=== PATIENT | female | born 1995 | race Caucasian/White ===

== ENCOUNTER 2025-01-14 07:59 | Emergency (ER) | payer OTHER, SELFPAY ==
[2025-01-14 08:10] VITALS: BP 133/95
[2025-01-14 08:42] LABS: % Basophils 0.6 % (0-2); % Eosinophils 3.9 % (0-6); % Immature Granulocytes 0.3 % (0-0.5); % Lymphocytes 25.1 % (20.5-51.1); % Monocytes 5.4 % (1.7-9.3); % Neutrophils 64.7 % (42.2-75.2); Absolute Eosinophils 0.3 10^3/uL (0-0.7); Absolute Lymphocytes 1.8 10^3/uL (1.2-3.4); Absolute Monocytes 0.4 10^3/uL (0.1-0.6); Absolute Neutrophils 4.7 10^3/uL (1.4-6.5); Hematocrit 43.1 % (37.0-47.0); Hemoglobin 14.2 g/dL (12.0-16.0); Mean Corp Hgb Conc. 32.9 g/dL (33.0-37.0); Mean Corpuscular Volume 81.9 fL (81.0-99.0); Nucleated Red Blood Cells % 0 %; Platelet Count 262 10^3/uL (130-400); Red Blood Cell Count 5.26 10^6/uL (4.20-5.40); Red Cell Dist. Width 13.8 % (11.5-14.5); White Blood Cell Count 7.3 10^3/uL (4.8-10.8)
[2025-01-14 08:49] LABS: HCG, Serum Qualitative Screen Negative
[2025-01-14 08:52] LABS: ALT (SGPT) 19 U/L (0-35); AST (SGOT) 21 U/L (14-36); Albumin 5.2 g/dl (3.5-5.0); Alkaline Phosphatase 93 U/L (38-126); Blood Urea Nitrogen 16 mg/dl (7-17); Carbon Dioxide 27 mmol/L (22-30); Chloride 101 mmol/L (98-107); Glucose 110 mg/dl (70-99); Potassium 4.5 mmol/L (3.5-5.1); Sodium 139 mmol/L (135-145); Total Bilirubin 1.5 mg/dl (0.2-1.3); Total Protein 8.7 g/dl (6.3-8.2); eGFR > 60.00
[2025-01-14 09:20] LABS: TSH 3.43 uIU/ml (0.47-4.68)
--- NOTE | 2025-01-14 10:58 | ED.GENMED ---
History of Present Illness
<Yasemin Wilkins PA-C - Last Filed: 01/14/25 17:09>
General
Chief Complaint: Numbness
Source: patient
Exam Limitations: none
Time Seen by Provider: 01/14/25 10:43
History of Present Illness
History of Present Illness:
29yoF with no significant past medical history presenting for evaluation of paresthesias. She started with right eye visual disturbance on 01/04/25 She states she could only see 50% of her vision and could not see the top portion of her visual field.
She was seen by an eye doctor and was told her exam was normal and she possibly had a migraine. Those visual symptoms resolved but she continues to have blurry vision in the R eye. One week ago, she developed paresthesias to her bilateral lower
extremities. She felt pins and needles just above her knee down to her feet. She started to take a magnesium supplement and symptoms seemed to improve for a few days. She woke up today feeling numb in her inner thigh region. She also reports
intermittent paresthesias in her upper abdomen. No involvement of upper extremities. She has been feeling fatigued over the past few days and has been urinating frequently.
Phy Exam
<Yasemin Wilkins PA-C - Last Filed: 01/14/25 17:09>
General Physical Exam
General Presentation: well appearing and no apparent distress
General age: appears stated age
General Skin: warm and dry
General Habitus: normal
General Mental: alert
Eye Exam
Eye Exam: PERRL, EOMI and visual wright normal
Cardiovascular Exam
Cardiovascular Exam: normal peripheral pulses (2+ radial and DP pulses bilaterally)
Pulmonary Exam
Pulmonary Exam: no respiratory distress
Neurological Exam
Neurological Exam: alert, CN II-XII intact, no motor deficits, normal reflexs, speech normal and other (CN 2-12 intact. 5/5 strength in all extremities and negative drift x4. She reports decreased sensation to the inner thighs bilaterally. Normal
finger to nose and heel to jo bilaterally. 2+ patellar reflexes bilaterally. Patient ambulating with a steady gait. )
[place] Coma Scale
Eye Opening: Spontaneous
Verbal Response: Oriented
Motor Response: Obeys Commands
GCS Total Score: 15
Skin Exam
Skin Exam: normal color and warm/dry
Psychiatric Exam
Psychiatric Exam: normal mood/affect
<Demetris Hurley MD - Last Filed: 01/14/25 12:16>
[place] Coma Scale
GCS Total Score: 15
Course
<Yasemin Wilkins PA-C - Last Filed: 01/14/25 17:09>
Orders/Labs/Results
Orders:
Orders
01/14/25 08:18
Test Result ONCE
01/14/25 08:25
Complete Blood Count/With Diff Urgent
Comprehensive Metabolic Panel Urgent
Folate Urgent
Comment: ADD FROM OTHER ORDER
HCG, Serum Qualitative Screen Urgent
Magnesium Urgent
TSH Urgent
Vitamin B12 Urgent
Comment: ADD FROM OTHER ORDER
01/14/25 08:53
CT Head W/o Iv Contrast Urgent
Comment:
Reason For Exam: R eye vision loss/blurriness, B/L LE numb/tingling
01/14/25 10:57
Add On- LAB Urgent
Tests Added?: magnesium
01/14/25 11:10
NEUROLOGY CONSULT Urgent
Consulting Provider: Howard Baires
Was physician already notified: Yes
01/14/25 11:32
Urinalysis Reflex To Culture Urgent
Date Specimen was Collected: 01/14/25
Time Specimen was Collected: 10:59
Urine Microscopic Reflex Cult Urgent
Urine Culture Urgent
DUSTIN Source: U
Specimen Description:
Date Specimen was Collected: 01/14/25
Time Specimen was Collected: 10:59
01/14/25 13:01
CT Head & Neck Angio W/wo IV Urgent
Comment:
Reason For Exam: amaurosis fugax r/o dissection
01/14/25 13:43
HAMZAH, IgG Reflex to HEp-2 [S] Routine
ANCA - MPO/PR3 Ab Profile [S] Routine
Heavy Metals Panel 3, Blood [S] Routine
Protein Electrophoresis Reflex [S] Routine
Sjogrens Ab (SSA 52, 60/SSB) [S] Routine
Abnormal Lab Results
01/14/25 01/14/25
08: 11:32
MCHC 32.9 L g/dL
(33.0-37.0)
Glucose 110 H mg/dl
(70-99)
Total Bilirubin 1.5 H mg/dl
(0.2-1.3)
Total Protein 8.7 H g/dl
(6.3-8.2)
Albumin 5.2 H g/dl
(3.5-5.0)
Leukocyte Esterase Rfl 3+ A
(Negative)
Urine WBC (Reflex) 50-60 A /HPF
(0-5)
Urine Bacteria (Reflex) Many A
(Negative)
01/14/25 08:25
01/14/25 08:25
Vital Signs
Initial and Last Documented VS:
Initial Vital Signs
Temp Pulse Resp BP Pulse Ox
98.1 F 81 18 133/95 100
01/14/25 08:10 01/14/25 08:10 01/14/25 08:10 01/14/25 08:10 01/14/25 08:10
Last Documented Vital Signs
Temp Pulse Resp BP Pulse Ox
98.1 F 66 18 130/84 100
01/14/25 08:10 01/14/25 15:47 01/14/25 15:47 01/14/25 15:26 01/14/25 15:27
<Demetris Hurley MD - Last Filed: 01/14/25 12:16>
Orders/Labs/Results
Orders:
Orders
01/14/25 08:18
Test Result ONCE
01/14/25 08:25
Complete Blood Count/With Diff Urgent
Comprehensive Metabolic Panel Urgent
Folate Urgent
Comment: ADD FROM OTHER ORDER
HCG, Serum Qualitative Screen Urgent
Magnesium Urgent
TSH Urgent
Vitamin B12 Urgent
Comment: ADD FROM OTHER ORDER
01/14/25 08:53
CT Head W/o Iv Contrast Urgent
Comment:
Reason For Exam: R eye vision loss/blurriness, B/L LE numb/tingling
01/14/25 10:57
Add On- LAB Urgent
Tests Added?: magnesium
01/14/25 11:10
NEUROLOGY CONSULT Urgent
Consulting Provider: Howard Baires
Was physician already notified: Yes
01/14/25 11:32
Urinalysis Reflex To Culture Urgent
Date Specimen was Collected: 01/14/25
Time Specimen was Collected: 10:59
Urine Microscopic Reflex Cult Urgent
Urine Culture Urgent
DUSTIN Source: U
Specimen Description:
Date Specimen was Collected: 01/14/25
Time Specimen was Collected: 10:59
01/14/25 13:01
CT Head & Neck Angio W/wo IV Urgent
Comment:
Reason For Exam: amaurosis fugax r/o dissection
01/14/25 13:43
HAMZAH, IgG Reflex to HEp-2 [S] Routine
ANCA - MPO/PR3 Ab Profile [S] Routine
Heavy Metals Panel 3, Blood [S] Routine
Protein Electrophoresis Reflex [S] Routine
Sjogrens Ab (SSA 52, 60/SSB) [S] Routine
Abnormal Lab Results
01/14/25 01/14/25
08:25 11:32
MCHC 32.9 L g/dL
(33.0-37.0)
Glucose 110 H mg/dl
(70-99)
Total Bilirubin 1.5 H mg/dl
(0.2-1.3)
Total Protein 8.7 H g/dl
(6.3-8.2)
Albumin 5.2 H g/dl
(3.5-5.0)
Leukocyte Esterase Rfl 3+ A
(Negative)
Urine WBC (Reflex) 50-60 A /HPF
(0-5)
Urine Bacteria (Reflex) Many A
(Negative)
01/14/25 08:25
01/14/25 08:25
Vital Signs
Initial and Last Documented VS:
Initial Vital Signs
Temp Pulse Resp BP Pulse Ox
98.1 F 81 18 133/95 100
01/14/25 08:10 01/14/25 08:10 01/14/25 08:10 01/14/25 08:10 01/14/25 08:10
Last Documented Vital Signs
Temp Pulse Resp BP Pulse Ox
98.1 F 66 18 130/84 100
01/14/25 08:10 01/14/25 15:47 01/14/25 15:47 01/14/25 15:26 01/14/25 15:27
Estherlt;Yasemin Wilkins PA-C - Last Filed: 01/14/25 17:09>
MDM/Problems Addressed
Differential Diagnosis Includes:
29yoF here with lower extremity paresthesias. Started with R eye vision loss on 01/04/25. Saw an eye doctor and had a normal exam. Visual loss has resolved but she continues to have blurriness. C/o pins and needles in both legs x 1 week. New numbness
to inner thighs this morning so came to the ED. VSS. There is decreased sensation to the lower extremities on exam. Strength is preserved and patellar reflexes are 2+ bilaterally. DP pulses are equal bilaterally. Differential diagnosis includes but
is not limited to: Complex migraine, radiculopathy, MS, vitamin deficiencies, peripheral neuropathy, carotid dissection
Initial ED plan: Labs and CT head obtained in triage. Labs unremarkable including normal electrolytes and TSH. CT head negative for acute findings. Will add on magnesium level as well as UA given report of urinary frequency. Neurology consulted
for further recommendations.
<Yasemin Wilkins PA-C - Last Filed: 01/14/25 17:09>
*Critical Care Note
Total Time (30-74mins, 75-104mins- exclusive of procedures): Not Applicable
<Yasemin Wilkins PA-C - Last Filed: 01/14/25 17:09>
Update Note
Update Note:
UA with 3+ leukocytes and many bacteria consistent with a UTI. Patient was evaluated by neurologist, Dr. Baires, at bedside. Neurology ordered labs for workup of peripheral neuropathy as well as a CTA head/neck to r/o carotid dissection. If CT is
negative, plan is for patient to f/u with her PCP for outpatient MRI brain as well as f/u in the neurology office to possible EMG.
CTA head/neck is negative for acute findings. Specifically, there is no atherosclerotic narrowing or dissection. She was started on a course of cefdinir for her UTI. Advised close f/u with her PCP and neurology. Strict ED return precautions
discussed including any new weakness in the lower extremities. Patient in agreement with plan and was discharged in stable condition.
ED Attending Note
<Yasemin Wilkins PA-C - Last Filed: 01/14/25 17:09>
-
Portions of this chart may have been created with voice recognition software.� Occasional wrong word or��sound alike� substitutions may have occurred due to the inherent limitations of voice recognition software.
<Demetris Hurley MD - Last Filed: 01/14/25 12:16>
ED Attending Note
Patient seen and examined by attending physician: Yes
I performed the substantive portion of visit, reviewed & personally made and approve the management plan that is documented in note by myself or SYLVIA.: Yes
ED Attending Note:
29-year-old female with some visual loss right eye about 10 days ago. Associate with mild headache. Was told it was a migraine at that time. Blurry vision has persisted and although more generalized in the right eye. No headache or eye pain.
Since then has developed symmetrical paresthesias to the lower extremities.
On exam patient is nontoxic in no distress. Normocephalic atraumatic. Neck is supple. Extraocular muscles intact. Pupils are large but reactive and symmetrical bilaterally. Discs are sharp. Speech is normal. Gait is normal.
Impression is paresthesias with right eye visual changes subjectively. Your workup is unremarkable. Will await neurology input
Discharge Plan
Departure
Patient Disposition: Home (Routine Discharge)
Date of Disposition: 01/14/25
Time of Disposition: 15:48
Patient with high blood pressure during this ER visit?: No
Discharge Problem:
Bilateral leg paresthesia, Subjective visual disturbance of right eye, Urinary tract infection
Instructions: Paresthesia (DC)
Prescriptions:
New
cefdinir 300 mg capsule
300 mg PO BID Qty: 14 0RF
Referrals:
Howard Baires MD [Active] -
NONE,* [Family Provider] -
Activity Restrictions/Additional Instructions:
Take antibiotics as prescribed for your bladder infection.
Please follow-up with your family doctor to obtain an MRI of your brain as well as neurology.
Return to the ER with any new or worsening symptoms, specifically if you develop any weakness in your legs.
Interventions
Interventions:
*Risk Screen - Suicide Last Done: 01/14/25 08:13
*General Assessment Last Done: 01/14/25 08:13
*Neglect/Abuse Screening Last Done: 01/14/25 08:13
ED- Fall Risk Assessment Last Done: 01/14/25 15:56
*ED COVID-19 Vaccine History Last Done: 01/14/25 08:13
*Nursing Disposition Last Done: 01/14/25 15:56
ED- Neurological Assessment Last Done: 01/14/25 11:09
Discharge Date and Time
Discharge Date/Time: 01/14/25 16:00
Print Language: LAO
[2025-01-14 11:35] VITALS: BP 146/85
[2025-01-14 11:52] LABS: Urine Albumin Negative (Neg - Trace); Urine Bilirubin Negative (Negative); Urine Character Clear (Clear); Urine Color Yellow; Urine Glucose Negative (Negative); Urine Ketone Negative (Negative); Urine Leukocyte 3+ (Negative); Urine Nitrite Negative (Negative); Urine Occult Blood Negative (Negative); Urine Urobilinogen Negative (Neg - 1+)
[2025-01-14 12:40] LABS: Urine Squamous Cell >30 /LPF (Few)
[2025-01-14 12:43] LABS: Urine Amorphous Seen; Urine Red Blood Cell 0-2 /HPF (0-2); Urine Urothelial Cell 0-2 /LPF (FEW)
[2025-01-14 12:44] LABS: Urine Bacteria Many (Negative); Urine White Cell 50-60 /HPF (0-5)
--- NOTE | 2025-01-14 13:02 | CON.NEURO ---
Neuro Assessment/Plan
Assessment
29 year old woman with 10 days of right eye vision loss/blurry vision like a curtain
7 days paresthesia in b/l lower extremities, 'distal symmetric polyneuropathy' exam with moderate vibratory loss at ankles
the only single cause I could think of is migraine, performed SPG block (sprayed bupivicaine 0.5 in nostrils) with no effect
patient agreeable to outpatient workup as symptoms seem relatively mild
Plan
'amaurosis fugax' check CTA rule out carotid dissection, and if neg can be discharged.
will send folate, B12, heavy metals, SPEP, HAMZAH, ANCA, sjogren antibodies
outpatient brain MRI noncontrast
follow up with neuro HEMATOLOGY SPECIALIST for results and determine if EMG is indicated based on symptoms progression.
symptoms mild, she is , no rx for now
if she develops weakness, return to ED for work up of GBS. patient agreeable to above
Consultation
Order
Date of Consultation: 01/14/25
Requesting Provider: Yasemin Wilkins
Reason for Consult: vision loss, lower extremity paresthesias
Subjective/Objective
Subjective Data
Date of Service: January 14, 2025
From ED physician notes:
29yoF with no significant past medical history presenting for evaluation of paresthesias. She started with right eye visual disturbance on 01/04/25 She states she could only see 50% of her vision and could not see the top portion of her visual field.
She was seen by an eye doctor and was told her exam was normal and she possibly had a migraine. Those visual symptoms resolved but she continues to have blurry vision in the R eye. One week ago, she developed paresthesias to her bilateral lower
extremities. She felt pins and needles just above her knee down to her feet. She started to take a magnesium supplement and symptoms seemed to improve for a few days. She woke up today feeling numb in her inner thigh region. She also reports
intermittent paresthesias in her upper abdomen. No involvement of upper extremities. She has been feeling fatigued over the past few days and has been urinating frequently.
This afternoon, she tells me that her vision loss came down like a curtain, and has not resolved. seems to fluctuate and usually worse later in the day. had a right temporal headache when this first began, now resolved. Denies weakness, falls,
Objective Data
Vital Signs
Temp Pulse Resp BP Pulse Ox
36.7 C 81 18 146/85 100
01/14/25 08:10 01/14/25 08:10 01/14/25 11:37 01/14/25 11:35 01/14/25 11:35
Lab Results
01/14/25 08:25
01/14/25 08:25
Sodium 139 mmol/L (135-145) 01/14/25 08:25
Potassium 4.5 mmol/L (3.5-5.1) 01/14/25 08:25
BUN 16 mg/dl (7-17) 01/14/25 08:25
Glucose 110 mg/dl (70-99) H 01/14/25 08:25
Calcium 10.0 mg/dl (8.4-10.2) 01/14/25 08:25
Patient Allergies
No Known Allergies Allergy (Unverified 01/14/25 08:15)
Physical Exam
-
AAOx3, speech clear, language intact
blurry vision OD
face symmetric
full strength b/l UE/LE, normal bulk/tone
moderate vibratory loss both ankles
DTR 2+ and symmetric biceps, knees, 1+ ankles
[2025-01-14 15:07] LABS: Folate 11.4 ng/ml (2.76-20); Vitamin B12 589 pg/ml (239-931)
[2025-01-14 15:26] VITALS: BP 130/84
[2025-01-16 15:32] LABS: SSA 52 (Ro)(ENA) Ab, IgG 1 AU/mL (0-40); SSA 60 (Ro)(ENA) Ab, IgG 1 AU/mL (0-40); SSB (La)(ENA) Ab, IgG 0 AU/mL (0-40)
[2025-01-16 19:17] LABS: ANA, IgG Reflex to HEp-2 None Detected (None Detected)
[2025-01-17 03:20] LABS: Arsenic, Blood <10.0 ug/L (<=12.0); Lead - Venous <2.0 ug/dL (<=4.9); Mercury, Blood <2.5 ug/L (<=10.0)
[2025-01-17 07:56] LABS: Myeloperoxidase Antibody 0 AU/mL (0-19); Serine Protease-3, IgG 2 AU/mL (0-19)
== END 2025-01-14 16:00 | disposition home or self-care (01) ==
LOC: EMR 07:59
PROVIDERS: Emergency Medicine; Physician Assistant; CONSULT PHYSICIAN Psychiatry & Neurology Clinical Neurophysiology; EMERGENCY PHYSICIAN Emergency Medicine
DX: G45.3 Amaurosis fugax (principal); R20.2 Paresthesia of skin; H53.10 Unspecified subjective visual disturbances; N39.0 Urinary tract infection, site not specified
CPT/HCPCS: 99285; 70450; 70496; 70498; 80053; 81003; 81015; 82175; 82607; 82746; 83516; 83655; 83735; 83825; 84155; 84165; 84443; 84703; 85025; 86038; 86235; 87086; Q9967

== ENCOUNTER 2025-01-15 19:38 | Inpatient (IN) | payer OTHER, SELFPAY ==
[2025-01-15] VITALS (7 sets, daily range): BP systolic 114–136; BP diastolic 62–95; BMI 26.0
--- NOTE | 2025-01-15 14:36 | EDRN ---
Dr. Sears in room w/pt at this time.
--- NOTE | 2025-01-15 14:51 | ED.GENMED ---
History of Present Illness
General
Chief Complaint: Urinary Symptoms
Source: patient and spouse
Time Seen by Provider: 01/15/25 14:30
History of Present Illness
History of Present Illness:
This is a 29-year-old female presents emergency department after being seen yesterday. Patient states her symptoms started about 2 weeks ago where she felt like an area over her abdomen felt 'more sensitive', associated with pain when she would
look laterally or down in the right eye only. This went away, and then shortly after she says she 'lost vision in the superior aspect of her visual field. This lasted a few days and resolved. She then noted blurry vision from her right eye only.
3 days later, she says she felt tingling initially in her feet and then migrating up to her knees area bilaterally. She took magnesium with temporary relief of symptoms but again developed numbness/tingling in her bilateral legs which prompted her
to come to the emergency department yesterday. At that point, the numbness also involve the inner part of her thighs bilaterally. She had an extensive workup in the emergency department including neurology consult, etc., and went home. Her UA
yesterday was preliminarily suggestive of UTI and she was started on antibiotics which she is compliant with. She denies dysuria, flank pain, fever, chills. She presents today because she is now unable to urinate. She describes passing 'little
drops' of urine this morning but otherwise unable to urinate with a sense that her bladder is very full. She notes that the numbness tingling that she has been experiencing has progressed to involve the level of the upper abdomen. She gave an
example of being a cold shower and feeling that the water felt cold on her upper body but less so on her lower body/abdomen area. She is having some difficulty walking because of the numbness and also her legs feel a little weak. She denies
headache, double vision, change in speech, nausea, vomiting
Past History
Past History
ED Past Medical History: None
ED Past Surgical History: None
Social History
Tobacco: Non-smoker
Alcohol: None
Drug: None
Personal:
Living: with family
Phy Exam
Physical Exam
Physical Exam:
GENERAL: Alert , in no apparent distress
EYE: pupils equal and reactive, EOMI, no nystagmus, visual wright intact
NECK: Supple, no significant adenopathy.
ENT: o/p clr, mmm.
CARDIAC: Regular rate and rhythm .
LUNGS: Clear breath sounds bilaterally, no acute respiratory distress, no wheezes/rales/rhonchi
ABDOMEN: Soft, without focal tenderness, no r/g, no cvat
NEUROLOGICAL: Alert and oriented, mild weakness noted at right lower extremity, 2-3+ patellar reflexes bilaterally, no clonus subjective change in sensation to light touch throughout lower extremities and abdomen
SKIN: Warm and dry, skin intact.
MUSCULOSKELETAL: No edema, well perfused.
PSYCH: Normal and appropriate interaction.
Course
Orders/Labs/Results
Orders:
Orders
01/15/25 14:51
Bladder Scan- Treatment ONCE
Sears Placement- Treatment ONCE
Reason for insertion: Acute Retention
01/15/25 14:58
MR Thoracic Spine W/o & With Urgent
Comment:
Reason For Exam: n,t, weakness
Recent pill cam endoscopy?: No
01/15/25 14:59
MR Cervical Spine Without & W Urgent
Comment:
Reason For Exam: n,t, weakness
Recent pill cam endoscopy?: No
01/15/25 15:26
Urinalysis Reflex To Culture Urgent
Date Specimen was Collected: 01/15/25
Time Specimen was Collected: 15:24
Urine Microscopic Reflex Cult Urgent
01/15/25 15:34
MR Brain W/o & With Contrast Urgent
Comment:
Reason For Exam: numb, tingl, weakness
Recent pill cam endoscopy?: No
01/15/25 15:45
CRP [C-Reactive Protein] Urgent
Complete Blood Count/No Diff Urgent
Comprehensive Metabolic Panel Urgent
ESR [Erythrocyte Sed Rate] Urgent
Magnesium Urgent
01/15/25 15:53
MethylPREDNISolone. [Solu-Medrol] 1,000 mg 0.9% Sodium Chloride 250 ml [Nss] 250 ml IV NOW
01/15/25 18:17
Vbihiqdbqkn-0-wrrioup Enzyme [S] Routine
Lyme Progressive Routine
PT/INR [Prothrombin Time] Routine
RPR [Syphilis/T. pallidum Ab Reflex] Routine
01/15/25 19:00
Add On- LAB Routine
Tests Added?: NMO/AQP4-IgG
01/15/25 19:03
Add On- LAB Routine
Comments:: CSF AQP4-IgG
Tests Added?: CSF AQP4-IgG
01/15/25 19:09
Add On- LAB Routine
Comments:: Please add to today's labs or draw as routine
Tests Added?: MOG-IgG
01/15/25 19:16
Admit/Transfer Patient As Directed
Co-Sign Provider:
Level of Care: Inpatient admission
Assign to:: Medical/Surgical
Physician / Group: hospitalist
Diagnosis: weakness
Reason for Hospitalization: peripheral neurological deficits
Expected length of stay greater than two midnights?: Yes
ELOS- Estimated Length of Stay in days: 2
I certify the patient meets the requirements for IP care: Yes
PRN Pain Medication Management As Directed
May give lesser potent ordered pain med per pt: Yes
preference::
Protocol:: Medication orders for pain may be administered in a
manner that supports deferring to patient preference
when the pt is:
- Requesting an ordered lesser potent pain medication.
Least to most potent pain medications are defined
as: acetaminophen < NSAID < tramadol < opioids
(morphine, oxycodone, hydromorphone).
- Requesting a lesser dose of the same medication IF
ORDERED.
- Requesting a less intrusive route of administration
if both routes are prescribed by the provider (PO <
IV).
01/15/25 19:17
Code Status As Directed
Resuscitation Status: Full Code
01/15/25 20:54
Acetaminophen [Tylenol] 650 mg PO Q4HPRN PRN
Bisacodyl [Dulcolax] 10 mg RECTAL [id number] PRN
Cefdinir [Omnicef] 300 mg PO Q12
Docusate W/Senna [Senokot-S] 1 tablet PO BIDPRN PRN
Ondansetron Injectable [Zofran] 4 mg IV Q6HPRN PRN
Polyethylene Glycol Powder [Miralax] 17 grams PO DAILYPRN PRN
01/15/25 20:54
IRAD CONSULT Routine
Consulting Provider: David Bradshaw
Was physician already notified: Yes
Reason for Consult/Procedure: lumbar puncture
Acknowledgement that appropriate orders are entered: Yes
Activity As Directed
Activity Level: With Assistance
Vital Signs As Directed
Frequency: Per unit guidelines
Pulse Ox/spot Check [RESP] Routine
Quantity: 1
Pt Eval And Treat Routine
Activity Level: With Assistance
DX Deep Vein Thrombosis Video Routine
01/16/25 Breakfast
Regular
Basic Metabolic Panel IN AM
Complete Blood Count/No Diff IN AM
Sjogrens Ab (SSA 52, 60/SSB) [S] IN AM
01/16/25 08:00
Pantoprazole [Protonix] 20 mg PO DAILY
01/16/25 18:00
Enoxaparin Sodium [Lovenox] 40 mg SC QPM
01/16/25 20:00
MethylPREDNISolone. [Solu-Medrol] 1,000 mg 0.9% Sodium Chloride 250 ml [Nss] 250 ml IV Q24H
Abnormal Lab Results
01/15/25 01/15/25
15:26 15:45
Sodium 134 L mmol/L
(135-145)
Chloride 97 L mmol/L
(98-107)
Glucose 110 H mg/dl
(70-99)
Total Bilirubin 2.5 H D mg/dl
(0.2-1.3)
Total Protein 8.6 H g/dl
(6.3-8.2)
Albumin 5.4 H g/dl
(3.5-5.0)
Ur Occult Blood Reflex 1+ A
(Negative)
Urine Bacteria (Reflex) Few A
(Negative)
01/15/25 15:45
01/15/25 15:45
Vital Signs
Initial and Last Documented VS:
Initial Vital Signs
Temp Pulse Resp BP Pulse Ox
98.4 F 84 16 132/95 98
01/15/25 12:50 01/15/25 12:50 01/15/25 12:50 01/15/25 12:50 01/15/25 12:50
Last Documented Vital Signs
Temp Pulse Resp BP Pulse Ox
98.2 F 92 15 116/63 99
01/15/25 21:00 01/15/25 21:00 01/15/25 21:00 01/15/25 21:00 01/15/25 21:00
*Critical Care Note
Total Time (30-74mins, 75-104mins- exclusive of procedures): Not Applicable
Update Note
Update Note:
Patient presents to the Emergency Department with _urinary retention
Number and Complexity of Problems Addressed at the Encounter
� Chronic conditions affecting care:
� Acute Exacerbation and/or Progression of Chronic Illness:
� Differential Diagnosis includes: But not limited to GBS, epidural hematoma, transverse myelitis, vitamin deficiency, etc. etc. etc.
Amount and/or Complexity of Data to be Reviewed and Analyzed
� I performed an independent evaluation of and my interpretation is:
EKG:
CT:
Xrays:
Laboratory Studies:
Other:mri Pretty extensive signal normality in the cervical and thoracic spinal cord on Mary Madl . It�s what they sometimes call longitudinally extensive transverse myelitis.
Classically described in association with neuromyelitis optica, but can also be seen with multiple sclerosis, [place], and sjogren�s syndrome, may be also with lupus.
Just making my way through the entire exam now, but it�s pretty obvious on initial review.
Brain: slight enlargement of pineal gland with small cysts. This is most likely a benign pineal gland lesion. Pineal gland neoplasm not completely excluded. Follow-up MRI imaging with attention to the pineal gland is suggested, with suggested
timeframe of 6-12 months.
No other significant MR abnormality of the brain. There is no evidence for focal demyelination, with no MR findings that would suggest multiple sclerosis.n light of findings on MRI of the cervical and thoracic spine obtained concurrently, I reviewed
the MRI of the brain again.
Probably best seen on coronal 3-D FLAIR images, the right optic nerve appears enlarged and of greater signal intensity when compared to the left. This would suggest a right-sided optic neuritis, and the patient reportedly has some right-sided eye
symptoms.
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
� Review of other/old records reveals:
� Clinical information was obtained by an independent historian: who is bedside
� Prescriptions/Medications Considered but not given:
� Further testing considered but not performed:
Risk of Complications and/or Morbidity or Mortality of Patient Management
� Social determinants of health affecting care:
� Discussion with other providers (PCP, Hospitalists, Consultants, etc):
� Escalation of care including admission/observation vs risk of discharge considered:304 PM Neurology sent tt requesting consult. MRI radiology (Stu Holm) sent text re:MR.
Case d/w neurology, strong suspicion for MS, recommend solumedrol 1 gmnow. I offered to do LP,she recommends IR do in AM< not urgent for today. Will admit, hospitalist made aware. Pt updated, and given copy of labs/mr with instructions to
\\f/u on incidental findings also.
ED Attending Note
-
Portions of this chart may have been created with voice recognition software.� Occasional wrong word or��sound alike� substitutions may have occurred due to the inherent limitations of voice recognition software.
Discharge Plan
Departure
Patient Disposition: Admit
Date of Disposition: 01/15/25
Time of Disposition: 18:29
Admit to: Med/Surg
Admit to doctor: juan a
Presentation/result/management discussed w/ accepting MD/DO: Hospitalist
Condition: Fair
Discharge Problem:
urinary retention
Interventions
Interventions:
*Risk Screen - Suicide Last Done: 01/15/25 12:50
*General Assessment Last Done: 01/15/25 15:45
*Neglect/Abuse Screening Last Done: 01/15/25 12:50
ED- Fall Risk Assessment Last Done: 01/15/25 15:45
*ED COVID-19 Vaccine History Last Done: 01/15/25 15:45
*Nursing Disposition Last Done: 01/15/25 20:40
ED-Female Genitourinary Assessment Last Done: 01/15/25 15:42
Discharge Date and Time
Discharge Date/Time: 01/15/25 20:40
[2025-01-15 15:39] LABS: Urine Albumin Negative (Neg - Trace); Urine Bilirubin Negative (Negative); Urine Character Clear (Clear); Urine Color Yellow; Urine Glucose Negative (Negative); Urine Ketone Negative (Negative); Urine Leukocyte Negative (Negative); Urine Nitrite Negative (Negative); Urine Occult Blood 1+ (Negative); Urine Urobilinogen Negative (Neg - 1+); Urine pH 6.5 (5.0-9.0)
--- NOTE | 2025-01-15 15:53 | EDRN ---
Pharmacy working on getting solumedrol at this time.
[2025-01-15 15:55] LABS: Urine Red Blood Cell 0-2 /HPF (0-2); Urine Squamous Cell 16-20 /LPF (Few); Urine White Cell 0-2 /HPF (0-5)
[2025-01-15 15:56] LABS: Urine Bacteria Few (Negative)
[2025-01-15 15:59] LABS: Hematocrit 43.1 % (37.0-47.0); Hemoglobin 14.4 g/dL (12.0-16.0); Mean Corp Hgb Conc. 33.4 g/dL (33.0-37.0); Mean Corpuscular Hgb 27.2 pg (27.0-31.0); Mean Corpuscular Volume 81.5 fL (81.0-99.0); Platelet Count 282 10^3/uL (130-400); Red Blood Cell Count 5.29 10^6/uL (4.20-5.40); Red Cell Dist. Width 13.8 % (11.5-14.5); White Blood Cell Count 10.3 10^3/uL (4.8-10.8)
[2025-01-15 16:12] LABS: ALT (SGPT) 19 U/L (0-35); AST (SGOT) 25 U/L (14-36); Albumin 5.4 g/dl (3.5-5.0); Alkaline Phosphatase 99 U/L (38-126); Blood Urea Nitrogen 11 mg/dl (7-17); Calcium 9.9 mg/dl (8.4-10.2); Carbon Dioxide 25 mmol/L (22-30); Chloride 97 mmol/L (98-107); Glucose 110 mg/dl (70-99); Magnesium 2.2 mg/dl (1.6-2.3); Potassium 4.5 mmol/L (3.5-5.1); Sodium 134 mmol/L (135-145); Total Bilirubin 2.5 mg/dl (0.2-1.3); Total Protein 8.6 g/dl (6.3-8.2); eGFR > 60.00
[2025-01-15 16:14] LABS: C-Reactive Protein < 5.00 mg/L (0.0-10.00)
--- NOTE | 2025-01-15 16:23 | CON.NEURO ---
Consultation
Order
Date of Consultation: 01/15/25
Requesting Provider: Roselia Sears MD
Reason for Consult: Leg weakness
Neurology Consultation Note.
HPI: This is a 29-year-old right-handed woman who presented to [facility] with visual, motor and sensory symptoms.
According to the patient she developed right eye pain worse with lateral movements with associated blurred vision mostly in the right upper visual field around 2 weeks ago. Although the vision partially cleared, she reports persistent blurriness and
photosensitivity. Three days after the visual disturbance, the patient developed paresthesias in her feet that progressed proximally to her knees. The symptoms initially improved but then recurred and worsened. Yesterday, she presented to the
hospital due to severe numbness in her lower extremities and imbalance. She had unremarkable CT head and CTA of the head and neck. Today, she reports numbness extending to her perineal and abdomen up to the mamillary line as well as urinary
retention. The left leg is weaker than the right. Reports of sensory or motor symptoms in the arms, dysphagia, dysarthria or diplopia.
The patient is currently her [id number] child.
ER VS: 132/95, 84, afebrile
PDMP:none
Labs: Sodium�134, glucose�110, total bilirubin�2.5, normal AST, ALT, protein�8.6, normal vitamin B12, folate, TSH, CRP.
PMH:none
PSH:none
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
FH: No family history of autoimmune disease
All:NKDA
ROS: Constitutional: Negative. Negative for chills, fever and unexpected weight change.
HENT: Negative for ear pain, hearing loss, tinnitus and trouble swallowing.
Eyes: Positive for painful right visual impairment
Respiratory: Negative for cough, choking and shortness of breath.
Cardiovascular: Negative for chest pain, palpitations and leg swelling.
Gastrointestinal: Negative for abdominal pain and vomiting.
Endocrine: Negative. Negative for cold intolerance.
Genitourinary: Positive for urinary retention
Musculoskeletal: Negative for back pain, gait problem, neck pain and neck stiffness.
Skin: Negative for rash.
Allergic/Immunologic: Negative. Negative for immunocompromised state.
Neurological: Positive for leg weakness, paresthesias
Psychiatric/Behavioral: Negative for behavioral problems, confusion and hallucinations.
General: Well developed. In no acute distress.
Cardio: Regular rate and rhythm without murmur. Extremities are without cyanosis or edema.
Neuro:
Mental Status: Alert, oriented to person, place, and date. Normal attention and recall. Good fund of knowledge. Follows complex requests across the midline. Comprehension, naming, and repetition intact. Immediate and delayed recall 3/3.
Cranial Nerves: Pupils are equally round and reactive to light. Red desaturation on the right. No APD. EOMs full. Visual wright full to confrontation. No ptosis. No nystagmus. V1-V3 intact to light touch and pinprick bilaterally, symmetric.
Face symmetric. Normal hearing AU. The palate elevated well. SCMs and traps 5/5. Tongue midline. No dysarthria.
Motor: Normal bulk and tone. No pronator or arm drift. Strength 5/5 throughout except for right >left proximal greater than distal leg weakness. No clonus.
Reflexes: 3+ throughout the upper extremities and 3+knees. 2/2 in AJs. Positive crossed adductor's and suprapatellar's. Kunal's positive on the left. Plantar responses mute bilaterally.
Sensory: Absent vibration at bilateral toes, right ankle. Absent proprioception on the right and impaired on the left.
Coordination: No dysmetria or tremor.
Gait: deferred
Assessment and Plan:
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
II. Right optic neuritis
III. Acute or subacute thoracic myelopathy.
-Fall precautions
-Start IV�methylprednisone (succinate) 1 g daily for 3 to 7 days either alone or followed by an oral taper with prednisone based on clinical course with GI prophylaxis
-MS mimickers
-Brain and C/T spine MRI with and without gadolinium
-CSF(OP/CP, cell count, protein, glucose, oligoclonal bands, myelin basic protein, stain, cultures, DUYEN)
-PT
-Case was discussed with patient's spouse present at bedside.
I personally reviewed all radiology and labs along with past medical records pertinent to current medical problems. Total time spent in patient care is 60 minutes.
Thank you for allowing us to participate in the care of this patient. We will continue to follow. Please do not hesitate to contact us with any questions or concerns.
Subjective/Objective
Subjective Data
Date of Service: January 15, 2025
Objective Data
Vital Signs
Temp Pulse Resp BP Pulse Ox
36.9 C 70 24 118/78 100
01/15/25 12:50 01/15/25 15:45 01/15/25 15:45 01/15/25 15:42 01/15/25 15:45
Lab Results
01/15/25 15:45
01/15/25 15:45
Sodium 134 mmol/L (135-145) L 01/15/25 15:45
Potassium 4.5 mmol/L (3.5-5.1) 01/15/25 15:45
BUN 11 mg/dl (7-17) 01/15/25 15:45
Glucose 110 mg/dl (70-99) H 01/15/25 15:45
Calcium 9.9 mg/dl (8.4-10.2) 01/15/25 15:45
Patient Allergies
No Known Allergies Allergy (Unverified 01/14/25 08:15)
Medications
-
Active Medications
Generic Name Dose Route Start Last Admin
Trade Name Freq PRN Reason Stop Dose Admin
Methylprednisolone Sodium 258 mls @ 258 mls/hr 01/15/25 15:53
Succinate 1,000 mg/ Sodium IV 01/15/25 16:52
Chloride NOW STA
Home Medications
�Medication �Instructions �Recorded
cefdinir 300 mg capsule 300 mg PO BID #14 caps 01/14/25
Vital Signs and Labs
-
Vital Signs and Labs:
Vital Signs
Temp Pulse Resp BP Pulse Ox
36.9 C 70 24 118/78 100
01/15/25 12:50 01/15/25 15:45 01/15/25 15:45 01/15/25 15:42 01/15/25 15:45
Lab Results
01/15/25 15:45
01/15/25 15:45
Sodium 134 mmol/L (135-145) L 01/15/25 15:45
Potassium 4.5 mmol/L (3.5-5.1) 01/15/25 15:45
BUN 11 mg/dl (7-17) 01/15/25 15:45
Glucose 110 mg/dl (70-99) H 01/15/25 15:45
Calcium 9.9 mg/dl (8.4-10.2) 01/15/25 15:45
Medications
-
Medications:
Generic Name Dose Route Start Last Admin
Trade Name Freq PRN Reason Stop Dose Admin
Methylprednisolone Sodium 258 mls @ 258 mls/hr 01/15/25 15:53
Succinate 1,000 mg/ Sodium IV 01/15/25 16:52
Chloride NOW STA
Home Medications
-
Home Medications
cefdinir 300 mg capsule 300 mg PO BID #14 caps 01/14/25
[2025-01-15 16:40] LABS: Erythrocyte Sed Rate 2 mm/hour (0-20)
--- NOTE | 2025-01-15 17:42 | EDRN ---
Pt remains in MRI at this time.
[2025-01-15] MEDS: SOLU-MEDROL 258 MG IV (18:25)
[2025-01-15 18:35] LABS: INR 1.02; PT 13.7 Sec (11.4-14.6)
--- NOTE | 2025-01-15 19:06 | HPS.HSE ---
Family Physician
-
Family Physician: Butch Malone
Chief Complaint
-
weakness
History of Present Illness
This is a 29 y.o female without known past medical history presenting to ED with multiple complaints.
She stated right eye pain with lateralmovements assocatied with blurred vision mostly in the right upper visal field starting 2 weeks ago. Then development of persistent photosensitivity and blurriness. Three days later she had parasthesias in the
feet that progressed proximally to her knees. Appeared to improve but recurred again later. She came in to ED yesterday with severe lower extremity numbness bilaterally and difficulty with imbalance.
She then developed numbness extending to her perineal and abdomen up to the chest. She reports some urinary retention and leeft leg weakness.
In the ED today she was afebrile, blood pressure was 118/78 with a pulse of 69 satting 100% on room air. CBC was unremarkable. Electrolytes BUN/creatinine were all within the normal range. UA was negative. Total bilirubin was slightly elevated
at 2.5, serum albumin was elevated at 5.4 with normal total protein level. LFTs were otherwise unremarkable.
Recent CT head and CTA of the head and neck were negative.
MR brain: Slight enlargement of pineal gland with small cysts. This is most likely a benign pineal gland lesion. Pineal gland neoplasm not completely excluded. Follow-up MRI imaging with attention to the pineal gland is suggested, with suggested
MR C-spine, thoracic spine and lumbar spine with and without gadolinium are pending.
Medical History
Past Medical History
Past Medical History: Reports None
Past Surgical History: Reports None
Social History
Tobacco: Non-smoker
Alcohol: None
Drug: None
Personal:
Living: With Family
Employment: Employed
Family History
Family History: Not pertinent
Allergies / Home Medications
Allergies reflects when Allergies were last updated in [email or web address].
Home Medications with original date entered in [email or web address]
Allergy/Medication List:
Allergies
Allergy/AdvReac Type Severity Reaction Status Date / Time
No Known Allergies Allergy Unverified 01/14/25 08:15
Home Medications
cefdinir 300 mg capsule 300 mg PO BID #14 caps 01/14/25
cranberry fruit 450 mg tablet (cranberry) 450 mg PO DAILYPRN PRN UTI 01/15/25
ibuprofen 200 mg tablet 200 mg PO Q6HPRN PRN mild pain/fever 01/15/25
Review of Systems
-
History Source: Patient
Constitutional: Reports No Symptoms
EENT: Reports No Symptoms
Respiratory: Reports No Symptoms
Cardiac: Reports No Symptoms
Abdomen/GI: Reports No Symptoms
: Reports Incontinence
Musculoskeletal: Reports No Symptoms
Skin: Reports No Symptoms
Neurological: Reports Weakness and Numbness
Endocrine: Reports No Symptoms
Hematologic/Lymphatic: Reports No Symptoms
Psych: Reports No Symptoms
Physical Exam
Vital Signs
Vital Signs
Temp Pulse Resp BP Pulse Ox
98.4 F 69 16 118/78 100
01/15/25 12:50 01/15/25 15:50 01/15/25 15:50 01/15/25 15:50 01/15/25 15:50
Physical Exam
General: Well Developed, Well Nourished and Comfortable
HEENT: NormoCephalic, Anicteric, Moist mucous membranes and Atraumatic
Respiratory: Clear
Cardiac: S1/S2 and Regular Rhythm
Breast: Deferred by me
GI: Soft, Non Tender, Non Distended and Normal Bowel Sounds
Rectal: Deferred by Provider
Genito-urinary: Clear Urine
Musculoskeletal: No Cyanosis and No Edema
Skin: Warm
Neuro: AO x 3, Cranial Nerves Intact, No Sensory Deficits (Absent vibration at bilateral toes, right ankle. Absent proprioception on the right and impaired on the left.) and DTR's Intact & Symmetrical; No Slurred Speech or Facial Droop
Hematologic/Lymphatic: No Lymphadenopathy
Psych: Calm
Laboratory Results
-
01/15/25 15:45
01/15/25 15:45
Laboratory Results
PT 13.7 Sec (11.4-14.6) 01/15/25 18:17
INR 1.02 01/15/25 18:17
Total Bilirubin 2.5 mg/dl (0.2-1.3) H D 01/15/25 15:45
AST 25 U/L (14-36) 01/15/25 15:45
ALT 19 U/L (0-35) 01/15/25 15:45
Alkaline Phosphatase 99 U/L (38-126) 01/15/25 15:45
Data Reviewed
-
CT Scan: Report Reviewed by me
Lab Data: Labs Reviewed by me
Old Records: Reviewed
Impression/Plan
-
IMPRESSION:
29 y.o without known medical history presenting with multiple neurological complaints over last few weeks including blurry vision, sensory deficit, weakness in left leg and urinary retention concerning for MS spectrum disorders. Seen by neurology
with recommendations. Routine labs unremarkable except slight elevation in T bili. 2.5. Equivocal u/a
PLAN:
1. Neurological process - Seen by neurology, will follow plan as stated. Suspicion for MS and mimickers. MRI brain negative, MR spine results pending
- admit to med/surg
- start solumedrol 1g daily for 3 - 7 days
- ppx
- LP in am, IR consulted
- Inflammatory markers and CSF serologies per neuro
- pain control and antiemetics
- salguero catheter for now
- 3 days of cefdinir to complete course
DVT PPX - lovenox sq
Code status - Full Code
--- NOTE | 2025-01-15 20:30 | PTCARENOTE ---
Pt arrived to floor via stretcher from the ED. Pt AAOx3, accompanied by . Pt assisted by this RN to ambulate into room. Pt with B/L LE weakness, unstable on feet without help. Pt settled in bed per comfort. pt able to raise legs off of bed,
but right significantly weaker then left leg. Pt reports legs feel heavy with pins and needle type feeling. Pt denies any other complaints at this time. HR Reg, POX 99% on RA. round abd. palpable peripheral pulses. Left AC int capped. at
bedside. Call tovar in reach. Will continue to monitor.
[2025-01-15] MEDS: OMNICEF PO (21:06)
--- NOTE | 2025-01-15 23:00 | PTCARENOTE ---
Pt ambulatory with assistance and use of walker to help better support steady gait. Pt reports falling at home in bathroom, close monitoring maintained. pt using call tovar appropriately. Sears in place draining clear yellow urine. denies any
complaints of pain or discomfort at this time. will continue to monitor.
[2025-01-16 06:00] VITALS: BMI 26.0
[2025-01-16 07:30] VITALS: BP 114/71
[2025-01-16] MEDS: PROTONIX 20 MG PO (08:23)
[2025-01-16] MEDS: SENOKOT-S 1 TABLET PO (08:23)
[2025-01-16] MEDS: OMNICEF 300 MG PO ×2 (08:23→20:03)
[2025-01-16] MEDS: MIRALAX 17 GRAMS PO (08:23)
[2025-01-16 08:35] LABS: Hematocrit 43.3 % (37.0-47.0); Hemoglobin 14.4 g/dL (12.0-16.0); Mean Corp Hgb Conc. 33.3 g/dL (33.0-37.0); Mean Corpuscular Volume 81.1 fL (81.0-99.0); Red Blood Cell Count 5.34 10^6/uL (4.20-5.40)
[2025-01-16 09:02] LABS: Platelet Count 176 10^3/uL (130-400)
[2025-01-16 09:12] LABS: Blood Urea Nitrogen 20 mg/dl (7-17); Calcium 10.1 mg/dl (8.4-10.2); Carbon Dioxide 24 mmol/L (22-30); Chloride 104 mmol/L (98-107); Estimated Creatinine Clearance 103 ml/min; Glucose 142 mg/dl (70-99); Potassium 4.5 mmol/L (3.5-5.1); Sodium 141 mmol/L (135-145); eGFR > 60.00
--- NOTE | 2025-01-16 09:32 | LACTATION ---
Patient reports to nurse that she does not need any supplies or assistance.
--- NOTE | 2025-01-16 09:32 | W.PN.NEURO.1 ---
Today's Communication / Plan
-
.
Subjective/Objective
Subjective Data
Date of Service: January 16, 2025
Neurology Follow Up Note.
Ms. Wynn reports improvement in R eye visual acuity. No eye pain. Her R leg strength has been improving as well and she was able to stand and march in place yesterday. Voiding trial is pending. Tolerates IV steroids well. Mary endorses stiffness
in the right leg. No cramps, pain, back pain. No change in strength or sensation in arms or hands.
Brain MRI w/wo mandy(01/15/2025) increased signal intensity of the right optic nerve compared with the left. No clear enhancement.
C/T spine MR w/wo mandy(01/15/2025) C5 - T11 increased T2 and STIR signal with patchy enhancement from the inferior T8 level through the L1-2 level, including involvement of the conus medullaris.
PMH: right optic neuritis, myelitis
PSH:none
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
FH: No family history of autoimmune disease
All:NKDA
ROS: Constitutional: Negative. Negative for chills, fever and unexpected weight change.
HENT: Negative for ear pain, hearing loss, tinnitus and trouble swallowing.
Eyes: Positive for painful right visual impairment
Respiratory: Negative for cough, choking and shortness of breath.
Cardiovascular: Negative for chest pain, palpitations and leg swelling.
Gastrointestinal: Negative for abdominal pain and vomiting.
Endocrine: Negative. Negative for cold intolerance.
Genitourinary: Positive for urinary retention
Musculoskeletal: Negative for back pain, gait problem, neck pain and neck stiffness.
Skin: Negative for rash.
Allergic/Immunologic: Negative. Negative for immunocompromised state.
Neurological: Positive for leg weakness, paresthesias
Psychiatric/Behavioral: Negative for behavioral problems, confusion and hallucinations.
General: Well developed. In no acute distress.
Cardio: Regular rate and rhythm without murmur. Extremities are without cyanosis or edema.
Neuro:
Mental Status: Alert, oriented to person, place, and date. Normal attention and recall. Good fund of knowledge. Follows complex requests across the midline. Comprehension, naming, and repetition intact.
Cranial Nerves: Pupils are equally round and reactive to light. Red desaturation on the right. No APD. EOMs full. Visual wright full to confrontation. No ptosis. No nystagmus. V1-V3 intact to light touch and pinprick bilaterally, symmetric.
Face symmetric. Normal hearing AU. The palate elevated well. SCMs and traps 5/5. Tongue midline. No dysarthria.
Motor: Increased motor tone in the right leg. No pronator or arm drift. Strength 5/5 throughout except for right hip flexion�3+ out of 5, left hip flexion�4+ out of 5, dorsiflexion 4 out of 5 on the right, 5 out of 5 on the left.
Reflexes: 3+ throughout the upper extremities and 3+knees. 2/2 in AJs. Positive crossed adductor's and suprapatellar's. Kunal's positive on the left. Plantar responses mute bilaterally.
Sensory: Impaired vibration at the toes right greater than left. Preserved proprioception at the toes bilaterally. Plantar response�extensor bilateral.
Coordination: No dysmetria or tremor.
Gait: deferred
Assessment and Plan:
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 Differential diagnosis include
II. Right optic neuritis
III. Acute or subacute thoracic myelopathy.
-Fall precautions
-Continue IV�methylprednisone Succinate 1 g daily for 3 to 7 days either alone or followed by an oral taper with prednisone based on clinical course with GI prophylaxis
-May consider PLEX based on clinical course.
-serum MOG IgG, Anti-AQP4 IgG, anti SSA, anti SSB.
-CSF(OP/CP, cell count, protein, glucose, OCB, MBP, Anti-AQP4, MOG IgG)
-PT
-Case was discussed with patient's spouse present at bedside.
I personally reviewed all radiology and labs along with past medical records pertinent to current medical problems. Total time spent in patient care is 40 minutes.
Thank you for allowing us to participate in the care of this patient. We will continue to follow. Please do not hesitate to contact us with any questions or concerns.
Objective Data
Vital Signs
Temp Pulse Resp BP Pulse Ox
36.6 C 67 17 114/71 98
01/16/25 07:30 01/16/25 07:30 01/16/25 07:30 01/16/25 07:30 01/16/25 07:30
Lab Results
01/16/25 07:46
01/16/25 07:46
PT 13.7 Sec (11.4-14.6) 01/15/25 18:17
INR 1.02 01/15/25 18:17
Sodium 141 mmol/L (135-145) 01/16/25 07:46
Sodium Cancelled 01/16/25 07:46
Potassium 4.5 mmol/L (3.5-5.1) 01/16/25 07:46
Potassium Cancelled 01/16/25 07:46
BUN 20 mg/dl (7-17) H 01/16/25 07:46
BUN Cancelled 01/16/25 07:46
Glucose 142 mg/dl (70-99) H 01/16/25 07:46
Glucose Cancelled 01/16/25 07:46
Calcium 10.1 mg/dl (8.4-10.2) 01/16/25 07:46
Calcium Cancelled 01/16/25 07:46
Patient Allergies
No Known Allergies Allergy (Unverified 01/14/25 08:15)
Vital Signs and Labs
-
Vital Signs and Labs:
Vital Signs
Temp Pulse Resp BP Pulse Ox
36.6 C 67 17 114/71 98
01/16/25 07:30 01/16/25 07:30 01/16/25 07:30 01/16/25 07:30 01/16/25 07:30
Lab Results
01/16/25 07:46
01/16/25 07:46
PT 13.7 Sec (11.4-14.6) 01/15/25 18:17
INR 1.02 01/15/25 18:17
Sodium 141 mmol/L (135-145) 01/16/25 07:46
Sodium Cancelled 01/16/25 07:46
Potassium 4.5 mmol/L (3.5-5.1) 01/16/25 07:46
Potassium Cancelled 01/16/25 07:46
BUN 20 mg/dl (7-17) H 01/16/25 07:46
BUN Cancelled 01/16/25 07:46
Glucose 142 mg/dl (70-99) H 01/16/25 07:46
Glucose Cancelled 01/16/25 07:46
Calcium 10.1 mg/dl (8.4-10.2) 01/16/25 07:46
Calcium Cancelled 01/16/25 07:46
Medications
-
Medications:
Generic Name Dose Route Start Last Admin
Trade Name Freq PRN Reason Stop Dose Admin
Acetaminophen 650 mg 01/15/25 20:54
Acetaminophen 325 Mg Tablet PO 02/12/25 20:53
Q4HPRN PRN
mild pain/HOWARD/temp> 100.4F
Bisacodyl 10 mg 01/15/25 20:54
Bisacodyl 10 Mg Rectal Suppository RECTAL 02/12/25 20:53
[id number] PRN
constipation
Cefdinir 300 mg 01/15/25 20:54 01/16/25 08:23
Cefdinir 300 Mg Capsule PO 300 mg
Q12 CATHERINE Administration
Enoxaparin Sodium 40 mg 01/16/25 18:00
Enoxaparin Sodium 40 Mg/0.4 Ml Syringe SC 02/13/25 17:59
QPM CATHERINE
Methylprednisolone Sodium 258 mls @ 258 mls/hr 01/16/25 20:00
Succinate 1,000 mg/ Sodium IV 01/22/25 20:59
Chloride Q24H CATHERINE
Ondansetron HCl 4 mg 01/15/25 20:54
Ondansetron 4 Mg/2 Ml Vial IV 02/12/25 20:53
Q6HPRN PRN
nausea and vomiting
Pantoprazole Sodium 20 mg 01/16/25 08:00 01/16/25 08:23
Pantoprazole 20 Mg Delayed Release Tablet PO 02/13/25 07:59 20 mg
DAILY CATHERINE Administration
Polyethylene Glycol 17 grams 01/15/25 20:54 01/16/25 08:23
Polyethylene Glycol Powder 17 Grams Packet PO 02/12/25 20:53 17 grams
DAILYPRN PRN Administration
constipation
Senna/Docusate Sodium 1 tablet 01/15/25 20:54 01/16/25 08:23
Docusate W/Senna (Dannielle-Colace) Tablet PO 02/12/25 20:53 1 tablet
BIDPRN PRN Administration
constipation
Sodium Chloride 0 flush 01/15/25 21:00
Sodium Chloride 0.9% (Flush) Syringe IV 02/12/25 20:59
PER PROTOCOL CATHERINE
Home Medications
-
Home Medications
cefdinir 300 mg capsule 300 mg PO BID #14 caps 01/14/25
cranberry fruit 450 mg tablet (cranberry) 450 mg PO DAILYPRN PRN UTI 01/15/25
ibuprofen 200 mg tablet 200 mg PO Q6HPRN PRN mild pain/fever 01/15/25
--- NOTE | 2025-01-16 10:48 | W.PN.HOSP.TC ---
Today's Communication/Plan
-
See plan
Discussed with neurology
Assessment / Plan
Assessment / Plan
Impression:
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
� Right optic neuritis
� Transverse myelitis
Acute urine retention secondary to above
Plan:
MRI of the brain findings consistent with right optic neuritis.
MRI of the spine findings consistent with transverse myelitis from T8-L1�2 level
Recent workup in ED with CTA with no acute abnormalities
Ongoing serologic testing including CSF analysis and serum antibodies including AQP 4 IgG and MOG IgG which could be disease specific for NMO SD.
Clinically no evidence for subcortical or brainstem involvement.
Continue close neurologic monitoring
Initiated on pulse dose of IV steroids, plan for at least 3 to 5-day course.
Start basal bolus protocol with serial Accu-Cheks while on steroids.
Currently no indication for plasma exchange given significant response with initiation of corticosteroids.
Acute retention most likely related to transverse myelitis
Sears catheter in place
Urinalysis not consistent with infection
Physical/Occupational Therapy evaluation.
Anticipated Discharge: > 48 hours
Subjective/Interval History
-
Date of Service: January 16, 2025
Objective Data
-
Labs:
Laboratory Results
01/16/25 01/16/25 01/16/25
07:46 07:46 07:46
WBC 10.0
Hgb 14.4
Hct 43.3
Plt Count 176 D
Sodium Cancelled 141
Potassium Cancelled 4.5
Chloride Cancelled
Carbon Dioxide
BUN
Creatinine
Glucose
Calcium
01/16/25 01/16/25 01/16/25
07:46 07:46 07:46
WBC
Hgb
Hct
Plt Count
Sodium
Potassium
Chloride 104
Carbon Dioxide Cancelled 24
BUN Cancelled 20 H
Creatinine Cancelled
Glucose
Calcium
01/16/25 01/16/25 01/16/25
07:46 07:46 07:46
WBC
Hgb
Hct
Plt Count
Sodium
Potassium
Chloride
Carbon Dioxide
BUN
Creatinine 0.7
Glucose Cancelled 142 H
Calcium Cancelled 10.1
Vital Signs:
Vital Signs
Temp Pulse Resp BP Pulse Ox
98 F 67 17 114/71 98
01/16/25 07:30 01/16/25 07:30 01/16/25 07:30 01/16/25 07:30 01/16/25 07:30
I&O
01/15/25 01/16/25 01/17/25
06:59 06:59 06:59
Output Total 2800 / 2800
Balance -2800 / -2800
Physical Exam
-
General: Well Developed and No Apparent Distress
HEENT: Normocephalic, Atraumatic and Moist Mucous Membranes
Respiratory: Clear to Auscultation
Cardiac: Regular Rhythm and S1/S2; Negative Murmur, Rub or Gallop
GI: Soft, Nontender, Nondistended and Normal Bowel Sounds; Negative Organomegaly
Rectal: Deferred by Provider
Musculoskeletal: No Clubbing, No Cyanosis and No Edema
Skin: Negative Rash
Neuro: Nonfocal/Grossly Intact
[2025-01-16 13:45] VITALS: BP 122/82
[2025-01-16 14:27] LABS: Lyme Antibody Screen, EIA Presump. Positive (Negative); Syphilis/T. pallidum Ab Reflex Negative (Negative)
--- NOTE | 2025-01-16 14:37 | CM ---
CM reviewed medical records. Patient was off floor when CM attempted IA. CM will continue to follow.
PLAN: pending PT evaluations.
[2025-01-16 14:40] VITALS: BP 119/62; BP_SYST 91
[2025-01-16 15:27] LABS: CSF Color Xanthochromic; CSF Tube # Clarity Clear
[2025-01-16 15:29] LABS: CSF Clarity Clear; CSF Color Xanthochromic; CSF Tube # 4
[2025-01-16 15:34] LABS: White Cell Count/CSF 285 mm^3 (0-5)
[2025-01-16 15:36] LABS: CSF Tube # 1; White Blood Cell Count/CSF 357 mm^3 (0-5)
[2025-01-16 15:37] VITALS: BP 128/76
[2025-01-16 16:03] LABS: Spinal Fluid Glucose 84 mg/dl (40-70); Spinal Fluid Protein 132 mg/dl (12-60)
[2025-01-16] MEDS: NOVOLOG FLEXPEN-LOW RESISTANCE SC ×2 (16:40→18:03)
[2025-01-16 17:20] LABS: Spinal Fluid Lymphocytes 85 %; Spinal Fluid Macrophages 14 %
[2025-01-16 17:21] LABS: CSF Granulocytes 2 %; CSF Lymphocytes 87 %; Spinal Fluid Granulocytes 1 %; Spinal Fluid Macrophages 9 %
[2025-01-16 17:35] LABS: Glucose - Point of Care 96 mg/dl (70-99)
[2025-01-16] MEDS: LOVENOX 40 MG SC (18:06)
[2025-01-16] MEDS: SOLU-MEDROL 258 MG IV (20:01)
[2025-01-16 20:47] LABS: Red Cell Count/CSF 12 mm^3
[2025-01-16 20:54] LABS: Red Cell Count/CSF 42 mm^3
[2025-01-16 22:13] LABS: Glucose - Point of Care 137 mg/dl (70-99)
[2025-01-17] VITALS (7 sets, daily range): BP systolic 121–141; BP diastolic 63–87; PULSE 76; O2SAT 100; BMI 25.5
[2025-01-17] MEDS: PROTONIX 20 MG PO (07:38)
[2025-01-17] MEDS: OMNICEF 300 MG PO ×2 (07:38→20:59)
--- NOTE | 2025-01-17 07:54 | W.PN.NEURO.1 ---
Today's Communication / Plan
-
.
Subjective/Objective
Subjective Data
Date of Service: January 17, 2025
Neurology Follow Up Note.
Ms. Wynn reports improvement reports significant visual improvement since yesterday. R blurred vision has almost cleared, with only a slight residual 'fog'. The patient was able to shower independently yesterday, holding on with one hand for
support. She can now stand without a walker, although it has been recommended for use. The patient denies any headaches, back pain post LP. Admits to a mild insomnia and sweating.
CSF(01/16/2025) WBC 357(87% lymph), RBC 42, protein 132, glucose 84.
Lyme western blot-pending.
Brain MRI w/wo mandy(01/15/2025) increased signal intensity of the right optic nerve compared with the left. No clear enhancement.
C/T spine MR w/wo mandy(01/15/2025) C5 - T11 increased T2 and STIR signal with patchy enhancement from the inferior T8 level through the L1-2 level, including involvement of the conus medullaris.
PMH: right optic neuritis, myelitis, urinary retention
PSH:none
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
FH: No family history of autoimmune disease
All:NKDA
ROS: Constitutional: Negative. Negative for chills, fever and unexpected weight change.
HENT: Negative for ear pain, hearing loss, tinnitus and trouble swallowing.
Eyes: Positive for painful right visual impairment
Respiratory: Negative for cough, choking and shortness of breath.
Cardiovascular: Negative for chest pain, palpitations and leg swelling.
Gastrointestinal: Negative for abdominal pain and vomiting.
Endocrine: Negative. Negative for cold intolerance.
Genitourinary: Positive for urinary retention
Musculoskeletal: Negative for back pain, gait problem, neck pain and neck stiffness.
Skin: Negative for rash.
Allergic/Immunologic: Negative. Negative for immunocompromised state.
Neurological: Positive for leg weakness, paresthesias
Psychiatric/Behavioral: Negative for behavioral problems, confusion and hallucinations.
General: Well developed. In no acute distress.
Cardio: Regular rate and rhythm without murmur. Extremities are without cyanosis or edema.
Neuro:
Mental Status: Alert, oriented to person, place, and date. Normal attention and recall. Good fund of knowledge. Follows complex requests across the midline. Comprehension, naming, and repetition intact.
Cranial Nerves: Pupils are equally round and reactive to light. Red desaturation on the right. No APD. EOMs full. Visual wright full to confrontation. No ptosis. No nystagmus. V1-V3 intact to light touch and pinprick bilaterally, symmetric.
Face symmetric. Normal hearing AU. The palate elevated well. SCMs and traps 5/5. Tongue midline. No dysarthria.
Motor: Increased motor tone in the right leg. No pronator or arm drift. Strength 5/5 throughout except for right hip flexion�3+ out of 5, left hip flexion�4+ out of 5, dorsiflexion 4 out of 5 on the right, 5 out of 5 on the left.
Reflexes: 3+ throughout the upper extremities and 3+knees. 2/2 in AJs. Positive crossed adductor's and suprapatellar's. Kunal's positive on the left. Plantar responses mute bilaterally.
Sensory: Impaired vibration at the R tow, normal at the left. Preserved proprioception at the toes bilaterally. Plantar response�extensor bilateral.
Coordination: No dysmetria or tremor.
Gait: deferred
Assessment and Plan:
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
II. Acute or subacute thoracic myelopathy.
III. Urinary retention
-Fall precautions
-Continue IV�Solumetrol 1 g QD(day 3/5) followed by an oral taper with GI prophylaxis.
-Will follow requested CSF and serological studies
-Voiding trial
-PT
-DVT prophylaxis
I personally reviewed all radiology and labs along with past medical records pertinent to current medical problems. Total time spent in patient care is 35 minutes.
Thank you for allowing us to participate in the care of this patient. We will continue to follow. Please do not hesitate to contact us with any questions or concerns.
Objective Data
Vital Signs
Temp Pulse Resp BP Pulse Ox
36.8 C 62 16 128/68 98
01/17/25 00:16 01/17/25 00:16 01/17/25 00:16 01/17/25 00:16 01/17/25 00:16
Lab Results
01/16/25 07:46
01/16/25 07:46
PT 13.7 Sec (11.4-14.6) 01/15/25 18:17
INR 1.02 01/15/25 18:17
Sodium 141 mmol/L (135-145) 01/16/25 07:46
Sodium Cancelled 01/16/25 07:46
Potassium 4.5 mmol/L (3.5-5.1) 01/16/25 07:46
Potassium Cancelled 01/16/25 07:46
BUN 20 mg/dl (7-17) H 01/16/25 07:46
BUN Cancelled 01/16/25 07:46
Glucose 142 mg/dl (70-99) H 01/16/25 07:46
Glucose Cancelled 01/16/25 07:46
Calcium 10.1 mg/dl (8.4-10.2) 01/16/25 07:46
Calcium Cancelled 01/16/25 07:46
Patient Allergies
No Known Allergies Allergy (Unverified 01/14/25 08:15)
Vital Signs and Labs
-
Vital Signs and Labs:
Vital Signs
Temp Pulse Resp BP Pulse Ox
36.7 C 66 16 132/63 98
01/17/25 07:00 01/17/25 07:00 01/17/25 07:00 01/17/25 07:00 01/17/25 07:00
Lab Results
01/16/25 07:46
01/16/25 07:46
PT 13.7 Sec (11.4-14.6) 01/15/25 18:17
INR 1.02 01/15/25 18:17
Sodium 141 mmol/L (135-145) 01/16/25 07:46
Sodium Cancelled 01/16/25 07:46
Potassium 4.5 mmol/L (3.5-5.1) 01/16/25 07:46
Potassium Cancelled 01/16/25 07:46
BUN 20 mg/dl (7-17) H 01/16/25 07:46
BUN Cancelled 01/16/25 07:46
Glucose 142 mg/dl (70-99) H 01/16/25 07:46
Glucose Cancelled 01/16/25 07:46
Calcium 10.1 mg/dl (8.4-10.2) 01/16/25 07:46
Calcium Cancelled 01/16/25 07:46
Medications
-
Medications:
Generic Name Dose Route Start Last Admin
Trade Name Freq PRN Reason Stop Dose Admin
Acetaminophen 650 mg 01/15/25 20:54
Acetaminophen 325 Mg Tablet PO 02/12/25 20:53
Q4HPRN PRN
mild pain/HOWARD/temp> 100.4F
Bisacodyl 10 mg 01/15/25 20:54
Bisacodyl 10 Mg Rectal Suppository RECTAL 02/12/25 20:53
[id number] PRN
constipation
Cefdinir 300 mg 01/15/25 20:54 01/17/25 07:38
Cefdinir 300 Mg Capsule PO 300 mg
Q12 CATHERINE Administration
Dextrose 12.5 grams 01/16/25 10:44
Dextrose 50% (0.5 Grams/Ml) 50 Ml Syringe IV 02/13/25 10:43
[id number] PRN
hypoglycemia
Protocol
Enoxaparin Sodium 40 mg 01/16/25 18:00 01/16/25 18:06
Enoxaparin Sodium 40 Mg/0.4 Ml Syringe SC 02/13/25 17:59 40 mg
QPM CATHERINE Administration
Glucagon 1 mg 01/16/25 10:44
Glucagon 1 Mg Vial IM 02/13/25 10:43
PRN PRN
hypoglycemia
Protocol
Methylprednisolone Sodium 258 mls @ 258 mls/hr 01/16/25 20:00 01/16/25 20:01
Succinate 1,000 mg/ Sodium IV 01/22/25 20:59 258 mls
Chloride Q24H CATHERINE Administration
Insulin Aspart 0 units 01/16/25 11:30 01/17/25 09:15
Insulin Aspart Low Resistance 300 Units/3 Ml Pen.Injctr SC 02/13/25 11:29 Not Given
AC CATHERINE
Protocol
Ondansetron HCl 4 mg 01/15/25 20:54
Ondansetron 4 Mg/2 Ml Vial IV 02/12/25 20:53
Q6HPRN PRN
nausea and vomiting
Pantoprazole Sodium 20 mg 01/16/25 08:00 01/17/25 07:38
Pantoprazole 20 Mg Delayed Release Tablet PO 02/13/25 07:59 20 mg
DAILY CATHERINE Administration
Polyethylene Glycol 17 grams 01/15/25 20:54 01/16/25 08:23
Polyethylene Glycol Powder 17 Grams Packet PO 02/12/25 20:53 17 grams
DAILYPRN PRN Administration
constipation
Senna/Docusate Sodium 1 tablet 01/15/25 20:54 01/16/25 08:23
Docusate W/Senna (Dannielle-Colace) Tablet PO 02/12/25 20:53 1 tablet
BIDPRN PRN Administration
constipation
Sodium Chloride 0 flush 01/15/25 21:00
Sodium Chloride 0.9% (Flush) Syringe IV 02/12/25 20:59
PER PROTOCOL CATHERINE
Home Medications
-
Home Medications
cefdinir 300 mg capsule 300 mg PO BID #14 caps 01/14/25
cranberry fruit 450 mg tablet (cranberry) 450 mg PO DAILYPRN PRN UTI 01/15/25
ibuprofen 200 mg tablet 200 mg PO Q6HPRN PRN mild pain/fever 01/15/25
[2025-01-17 08:45] LABS: Glycohemoglobin (HgbA1c) 5.3 % (4.0-5.6)
[2025-01-17 09:11] LABS: Glucose - Point of Care 135 mg/dl (70-99)
[2025-01-17] MEDS: NOVOLOG FLEXPEN-LOW RESISTANCE SC ×2 (09:15→16:33)
--- NOTE | 2025-01-17 10:19 | CM ---
Alert awake oriented patient who lives with her Howard and 1 yo son in a 2 story home with 1 steps to enter and 12 to bed bathroom. She is independent in driving and in all activities of daily living.Offered VN she declined.
No adaptive devices
Never had VN/SNF
Pharmacy [facility]
PCP Dr Manrique
PLAN Home no needs
[2025-01-17 12:27] LABS: Glucose - Point of Care 150 mg/dl (70-99)
[2025-01-17] MEDS: NOVOLOG FLEXPEN-LOW RESISTANCE 1 UNITS SC (13:34)
[2025-01-17 16:31] LABS: Glucose - Point of Care 111 mg/dl (70-99)
--- NOTE | 2025-01-17 16:36 | W.PN.HOSP.TC ---
Today's Communication/Plan
-
She reports overall improvement particularly on the right thigh region, improved paresthesia and ambulation.
Continue IV steroids
Agree with voiding trial. Sears catheter removed.
Assessment / Plan
Assessment / Plan
Impression:
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
� Right optic neuritis
� Transverse myelitis
Acute urine retention secondary to above
Plan:
MRI of the brain findings consistent with right optic neuritis.
MRI of the spine findings consistent with transverse myelitis from T8-L1�2 level
Recent workup in ED with CTA with no acute abnormalities
Ongoing serologic testing including CSF analysis and serum antibodies including AQP 4 IgG and MOG IgG which could be disease specific for NMO SD.
Clinically no evidence for subcortical or brainstem involvement.
Continue close neurologic monitoring
Initiated on pulse dose of IV steroids, plan for at least 3 to 5-day course.
Start basal bolus protocol with serial Accu-Cheks while on steroids.
Currently no indication for plasma exchange given significant response with initiation of corticosteroids.
Acute retention most likely related to transverse myelitis
Sears catheter placed 01/16. Agree with voiding trial on 01/17
Urinalysis not consistent with infection
Physical/Occupational Therapy evaluation.
Anticipated Discharge: > 48 hours
Subjective/Interval History
-
Date of Service: January 17, 2025
Objective Data
-
Vital Signs:
Vital Signs
Temp Pulse Resp BP Pulse Ox
97.8 F 65 16 124/71 98
01/17/25 15:00 01/17/25 15:00 01/17/25 15:00 01/17/25 15:00 01/17/25 15:00
I&O
01/16/25 01/17/25 01/18/25
06:59 06:59 06:59
Intake Total 2438 / 2438 720 / 720
Output Total 2800 / 2800 1800 / 1800 1050 / 1050
Balance -2800 / -2800 638 / 638 -330 / -330
Physical Exam
-
General: Well Developed and No Apparent Distress
HEENT: Normocephalic, Atraumatic and Moist Mucous Membranes
Respiratory: Clear to Auscultation
Cardiac: Regular Rhythm and S1/S2; Negative Murmur, Rub or Gallop
GI: Soft, Nontender, Nondistended and Normal Bowel Sounds; Negative Organomegaly
Rectal: Deferred by Provider
Musculoskeletal: No Clubbing, No Cyanosis and No Edema
Skin: Negative Rash
Neuro: Nonfocal/Grossly Intact
--- NOTE | 2025-01-17 16:51 | PTCARENOTE ---
pt transferred from 1 acute to . Vs documented. no s/s of distress noted. call tovar within reach. plan of care ongoing.
[2025-01-17] MEDS: LOVENOX SC (17:15)
[2025-01-17] MEDS: SOLU-MEDROL 258 MG IV (20:58)
[2025-01-17 22:55] LABS: Glucose - Point of Care 101 mg/dl (70-99)
[2025-01-18 05:44] LABS: Angiotensin-1-converting Enzym 24 U/L (16-85)
[2025-01-18 07:20] VITALS: BP 127/72
[2025-01-18] MEDS: PROTONIX 20 MG PO (09:07)
[2025-01-18] MEDS: OMNICEF 300 MG PO (09:07)
[2025-01-18 09:09] LABS: Glucose - Point of Care 143 mg/dl (70-99)
[2025-01-18] MEDS: NOVOLOG FLEXPEN-LOW RESISTANCE SC ×2 (09:13→17:45)
--- NOTE | 2025-01-18 10:26 | W.PN.NEURO.1 ---
Today's Communication / Plan
-
.
Subjective/Objective
Subjective Data
Date of Service: January 18, 2025
Neurology Follow Up Note.
Ms. Wynn reports near resolution of her leg weakness and no difficulties with voiding.
Serum DUYEN, HAMZAH, anti SSA, SSA, RPR-neg. Lyme western blot-pending.
CSF(01/16/2025) WBC 357(87% lymph), RBC 42, protein 132, glucose 84.
Brain MRI w/wo mandy(01/15/2025) increased signal intensity of the right optic nerve compared with the left. No clear enhancement.
C/T spine MR w/wo mandy(01/15/2025) C5 - T11 increased T2 and STIR signal with patchy enhancement from the inferior T8 level through the L1-2 level, including involvement of the conus medullaris.
PMH: right optic neuritis, myelitis, urinary retention
PSH:none
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
FH: No family history of autoimmune disease
All:NKDA
ROS: Constitutional: Negative. Negative for chills, fever and unexpected weight change.
HENT: Negative for ear pain, hearing loss, tinnitus and trouble swallowing.
Eyes: Positive for painful right visual impairment
Respiratory: Negative for cough, choking and shortness of breath.
Cardiovascular: Negative for chest pain, palpitations and leg swelling.
Gastrointestinal: Negative for abdominal pain and vomiting.
Endocrine: Negative. Negative for cold intolerance.
Genitourinary: Negative for urinary urgency, frequency and dysuria
Musculoskeletal: Negative for back pain, gait problem, neck pain and neck stiffness.
Skin: Negative for rash.
Allergic/Immunologic: Negative. Negative for immunocompromised state.
Neurological: neg for leg weakness
Psychiatric/Behavioral: Negative for behavioral problems, confusion and hallucinations.
General: Well developed. In no acute distress.
Cardio: Regular rate and rhythm without murmur. Extremities are without cyanosis or edema.
Neuro:
Mental Status: Alert, oriented to person, place, and date. Normal attention and recall. Good fund of knowledge. Follows complex requests across the midline. Comprehension, naming, and repetition intact.
Cranial Nerves: Pupils are equally round and reactive to light. Red desaturation on the right. No APD. EOMs full. Visual wright full to confrontation. No ptosis. No nystagmus. V1-V3 intact to light touch and pinprick bilaterally, symmetric.
Face symmetric. Normal hearing AU. The palate elevated well. SCMs and traps 5/5. Tongue midline. No dysarthria.
Motor: Increased motor tone in the right leg. No pronator or arm drift. Strength 5/5 throughout except for right hip flexion�3+ out of 5, left hip flexion�4+ out of 5, dorsiflexion 4 out of 5 on the right, 5 out of 5 on the left.
Reflexes: 3+ throughout the upper extremities and 3+knees. 2/2 in AJs. Positive crossed adductor's and suprapatellar's. Kunal's positive on the left. Plantar responses mute bilaterally.
Sensory: Normal vibration at the toes, preserved proprioception at the toes bilaterally. Plantar response�mute bilateral.
Coordination: No dysmetria or tremor.
Gait: deferred
Assessment and Plan:
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
II. Acute or subacute C5-T11 myelopathy. Clinically improved
III. Right optic neuritis, clinically improved
-Fall precautions
-Continue IV�Solumetrol 1 g QD(day 4/5) followed by an oral taper with GI prophylaxis.
-Will follow requested CSF and serological studies
-PT
-DVT prophylaxis
I personally reviewed all radiology and labs along with past medical records pertinent to current medical problems. Total time spent in patient care is 35 minutes.
Thank you for allowing us to participate in the care of this patient. We will continue to follow. Please do not hesitate to contact us with any questions or concerns.
Objective Data
Vital Signs
Temp Pulse Resp BP Pulse Ox
36.6 C 60 16 127/72 98
01/18/25 07:20 01/18/25 07:20 01/18/25 07:20 01/18/25 07:20 01/18/25 07:20
Lab Results
01/16/25 07:46
01/16/25 07:46
PT 13.7 Sec (11.4-14.6) 01/15/25 18:17
INR 1.02 01/15/25 18:17
Sodium 141 mmol/L (135-145) 01/16/25 07:46
Sodium Cancelled 01/16/25 07:46
Potassium 4.5 mmol/L (3.5-5.1) 01/16/25 07:46
Potassium Cancelled 01/16/25 07:46
BUN 20 mg/dl (7-17) H 01/16/25 07:46
BUN Cancelled 01/16/25 07:46
Glucose 142 mg/dl (70-99) H 01/16/25 07:46
Glucose Cancelled 01/16/25 07:46
Calcium 10.1 mg/dl (8.4-10.2) 01/16/25 07:46
Calcium Cancelled 01/16/25 07:46
Patient Allergies
No Known Allergies Allergy (Unverified 01/14/25 08:15)
Vital Signs and Labs
-
Vital Signs and Labs:
Vital Signs
Temp Pulse Resp BP Pulse Ox
36.6 C 60 16 127/72 98
01/18/25 07:20 01/18/25 07:20 01/18/25 07:20 01/18/25 07:20 01/18/25 07:20
Lab Results
01/16/25 07:46
01/16/25 07:46
PT 13.7 Sec (11.4-14.6) 01/15/25 18:17
INR 1.02 01/15/25 18:17
Sodium 141 mmol/L (135-145) 01/16/25 07:46
Sodium Cancelled 01/16/25 07:46
Potassium 4.5 mmol/L (3.5-5.1) 01/16/25 07:46
Potassium Cancelled 01/16/25 07:46
BUN 20 mg/dl (7-17) H 01/16/25 07:46
BUN Cancelled 01/16/25 07:46
Glucose 142 mg/dl (70-99) H 01/16/25 07:46
Glucose Cancelled 01/16/25 07:46
Calcium 10.1 mg/dl (8.4-10.2) 01/16/25 07:46
Calcium Cancelled 01/16/25 07:46
Medications
-
Medications:
Generic Name Dose Route Start Last Admin
Trade Name Freq PRN Reason Stop Dose Admin
Acetaminophen 650 mg 01/15/25 20:54
Acetaminophen 325 Mg Tablet PO 02/12/25 20:53
Q4HPRN PRN
mild pain/HOWARD/temp> 100.4F
Bisacodyl 10 mg 01/15/25 20:54
Bisacodyl 10 Mg Rectal Suppository RECTAL 02/12/25 20:53
[id number] PRN
constipation
Cefdinir 300 mg 01/15/25 20:54 01/18/25 09:07
Cefdinir 300 Mg Capsule PO 300 mg
Q12 CATHERINE Administration
Dextrose 12.5 grams 01/16/25 10:44
Dextrose 50% (0.5 Grams/Ml) 50 Ml Syringe IV 02/13/25 10:43
[id number] PRN
hypoglycemia
Protocol
Enoxaparin Sodium 40 mg 01/16/25 18:00 01/17/25 17:15
Enoxaparin Sodium 40 Mg/0.4 Ml Syringe SC 02/13/25 17:59 Not Given
QPM CATHERINE
Glucagon 1 mg 01/16/25 10:44
Glucagon 1 Mg Vial IM 02/13/25 10:43
PRN PRN
hypoglycemia
Protocol
Methylprednisolone Sodium 258 mls @ 258 mls/hr 01/16/25 20:00 01/17/25 20:58
Succinate 1,000 mg/ Sodium IV 01/22/25 20:59 258 mls
Chloride Q24H CATHERINE Administration
Insulin Aspart 0 units 01/16/25 11:30 01/18/25 09:13
Insulin Aspart Low Resistance 300 Units/3 Ml Pen.Injctr SC 02/13/25 11:29 Not Given
AC CATHERINE
Protocol
Ondansetron HCl 4 mg 01/15/25 20:54
Ondansetron 4 Mg/2 Ml Vial IV 02/12/25 20:53
Q6HPRN PRN
nausea and vomiting
Pantoprazole Sodium 20 mg 01/16/25 08:00 01/18/25 09:07
Pantoprazole 20 Mg Delayed Release Tablet PO 02/13/25 07:59 20 mg
DAILY CATHERINE Administration
Polyethylene Glycol 17 grams 01/15/25 20:54 01/16/25 08:23
Polyethylene Glycol Powder 17 Grams Packet PO 02/12/25 20:53 17 grams
DAILYPRN PRN Administration
constipation
Senna/Docusate Sodium 1 tablet 01/15/25 20:54 01/16/25 08:23
Docusate W/Senna (Dannielle-Colace) Tablet PO 02/12/25 20:53 1 tablet
BIDPRN PRN Administration
constipation
Sodium Chloride 0 flush 01/15/25 21:00
Sodium Chloride 0.9% (Flush) Syringe IV 02/12/25 20:59
PER PROTOCOL CATHERINE
Home Medications
-
Home Medications
cefdinir 300 mg capsule 300 mg PO BID #14 caps 01/14/25
cranberry fruit 450 mg tablet (cranberry) 450 mg PO DAILYPRN PRN UTI 01/15/25
ibuprofen 200 mg tablet 200 mg PO Q6HPRN PRN mild pain/fever 01/15/25
--- NOTE | 2025-01-18 10:26 | CM ---
Met with patient at bedside.
discussed VN-declines
PLAN: Home, no needs
to transport
[2025-01-18 11:50] LABS: Glucose - Point of Care 153 mg/dl (70-99)
[2025-01-18] MEDS: NOVOLOG FLEXPEN-LOW RESISTANCE 1 UNITS SC (11:56)
--- NOTE | 2025-01-18 15:03 | W.PN.HOSP.TC ---
Today's Communication/Plan
-
Neurologically improving with improved vision in the right eye, ambulatory function
Continue IV corticosteroids day 4 out of 5.
Plan is to transition to oral steroid taper upon discharge and follow-up with neurology.
Discussed with consult at the bedside
Assessment / Plan
Assessment / Plan
Impression:
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
� Right optic neuritis
� Transverse myelitis
Acute urine retention secondary to above
Breast-feeding
Plan:
MRI of the brain findings consistent with right optic neuritis.
MRI of the spine findings consistent with transverse myelitis from T8-L1�2 level
Recent workup in ED with CTA with no acute abnormalities
Ongoing serologic testing including CSF analysis and serum antibodies including AQP 4 IgG and MOG IgG which could be disease specific for NMO SD.
Clinically no evidence for subcortical or brainstem involvement.
Continue close neurologic monitoring
Initiated on pulse dose of IV steroids, plan for at least 3 to 5-day course.
Start basal bolus protocol with serial Accu-Cheks while on steroids.
Currently no indication for plasma exchange given significant response with initiation of corticosteroids.
Acute retention most likely related to transverse myelitis
Sears catheter placed 01/16. Agree with voiding trial on 01/17
Urinalysis not consistent with infection
Physical/Occupational Therapy evaluation.
Anticipated Discharge: 24 - 48 hours
Subjective/Interval History
-
Date of Service: January 18, 2025
Objective Data
-
Vital Signs:
Vital Signs
Temp Pulse Resp BP Pulse Ox
97.8 F 60 16 127/72 98
01/18/25 07:20 01/18/25 07:20 01/18/25 07:20 01/18/25 07:20 01/18/25 07:20
I&O
01/17/25 01/18/25 01/19/25
06:59 06:59 06:59
Intake Total 2438 / 2438 3120 / 3120
Output Total 1800 / 1800 1974 / 1974
Balance 638 / 638 1145 / 1145
Physical Exam
-
General: Well Developed and No Apparent Distress
HEENT: Normocephalic, Atraumatic and Moist Mucous Membranes
Respiratory: Clear to Auscultation
Cardiac: Regular Rhythm and S1/S2; Negative Murmur, Rub or Gallop
GI: Soft, Nontender, Nondistended and Normal Bowel Sounds; Negative Organomegaly
Rectal: Deferred by Provider
Musculoskeletal: No Clubbing, No Cyanosis and No Edema
Skin: Negative Rash
Neuro: Nonfocal/Grossly Intact
[2025-01-18 15:15] VITALS: BP 116/68
[2025-01-18 17:38] LABS: Glucose - Point of Care 130 mg/dl (70-99)
[2025-01-18] MEDS: LOVENOX SC (18:04)
[2025-01-18] MEDS: SOLU-MEDROL 258 MG IV (20:10)
[2025-01-18 21:12] LABS: Glucose - Point of Care 111 mg/dl (70-99)
[2025-01-18 23:25] VITALS: BP 113/73
[2025-01-19 07:45] LABS: Glucose - Point of Care 149 mg/dl (70-99)
[2025-01-19 07:46] VITALS: BP 103/73
[2025-01-19] MEDS: NOVOLOG FLEXPEN-LOW RESISTANCE SC ×2 (09:17→13:41)
[2025-01-19] MEDS: PROTONIX 20 MG PO (09:17)
[2025-01-19 12:31] LABS: Glucose - Point of Care 151 mg/dl (70-99)
[2025-01-19 15:11] LABS: Lyme Ab Western Blot IgG Negative (Negative); Lyme Ab Western Blot IgM Negative (Negative)
--- NOTE | 2025-01-19 15:14 | W.DS.TRANS ---
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
-
Discharge Instructions:
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
� Right optic neuritis
� Transverse myelitis
Acute urine retention secondary to above
Diet Regular
Instructions:
Stand-Alone Forms:
Changes to Home Medications: Yes
Discharge Medications:
DC Medications w/original date entered in [employer]
pantoprazole 20 mg tablet,delayed release 20 mg PO DAILY #30 tabs 01/19/25
prednisone 10 mg tablet 10 mg PO DIRECTED #42 tabs 01/19/25
Home Medication Changes
Steroid taper along with PPI
Pending Results: No
--- NOTE | 2025-01-19 15:20 | CM ---
Met with patient to discuss discharge plan; reported that her will transport home
Texted Attending to request script for outpatient PT
Plan: Discharge to home with outpatient PT
[2025-01-19 15:49] VITALS: BP 111/60
[2025-01-19 17:44] LABS: CSF VDRL (T. pallidum) Non Reactive (Non Reactive)
[2025-01-19 19:52] LABS: Paraneoplastic Ab IgG, CSF None Detected (None Detected)
[2025-01-19 20:58] LABS: Albumin Index 12.4 ratio (0.0-9.0); Albumin, CSF 61 mg/dL (0-35); Albumin, Serum 4929 mg/dL (3500-5200); CSF IgG Synthesis Rate 22.3 mg/d (<=8.0); CSF Oligoclonal Bands Negative (Negative); CSF Oligoclonal Bands Number 0 Bands (0-1); IgG 1239 mg/dL (768-1632); IgG, CSF 12.1 mg/dL (0.0-6.0)
[2025-01-20 01:00] LABS: Angiotensin-1- Converting, CSF 2.5 U/L (0.0-2.5)
[2025-01-21 10:19] LABS: Myelin Basic Protein, CSF >102.00 ng/mL (0.00-5.50)
== END 2025-01-19 17:20 | disposition home or self-care (01) | DRG 98 ==
LOC: 2 NORTH 19:38
PROVIDERS: Radiology Vascular & Interventional Radiology; ADMITTING PHYSICIAN Internal Medicine; ATTENDING PHYSICIAN Internal Medicine; EMERGENCY PHYSICIAN Emergency Medicine; FAMILY PHYSICIAN Family Medicine; OTHER PHYSICIAN Psychiatry & Neurology Neurology
PROC: 009U3ZX Drainage of Spinal Canal, Percutaneous Approach, Diagnostic (ICD-10-PCS; 2025-01-16)
PROC: B01B1ZZ Fluoroscopy of Spinal Cord using Low Osmolar Contrast (ICD-10-PCS; 2025-01-16)
DX: G37.3 Acute transverse myelitis in demyelinating disease of central nervous system (principal); H46.9 Unspecified optic neuritis; R33.8 Other retention of urine; R13.10 Dysphagia, unspecified; H53.2 Diplopia
CPT/HCPCS: 51702; 62328; 70553; 72156; 72157; 80048; 80053; 81003; 81015; 82040; 82042; 82164; 82784; 82945; 82962; 83036; 83735; 83873; 83916; 84157; 85027; 85610; 85652; 86140; 86255; 86592; 86617; 86618; 86780; 87015; 87070; 87205; 87483; 89051; 96365; 97116; 97163; 97167; 97530; 97535; 99285; A9575

== ENCOUNTER → 2025-06-06 14:42 | Outpatient (REF) | payer OTHER, SELFPAY | LOC: RAD 14:42 | PROVIDERS: ATTENDING PHYSICIAN Nurse Practitioner Family | DX: M79.672 Pain in left foot (principal) | CPT/HCPCS: 73630 ==